=== PATIENT | female | born 1990 | race Hispanic/Latino ===

== ENCOUNTER 2019-04-16 10:48 | Inpatient (IN) | payer OTHER ==
[~2019-04-16] VITALS: Ht 167.6 cm; Wt 149.7 kg
[~2019-04-16 10:48] MED LIST: GUAIFENESIN-CO118 ML PO; IBUPROFEN800 MG PO; PRENA1 PLUS CO1 EACH PO; PRENATAL MULTI1 EAC3 PO; TUMS ULTRA400 MG PO
--- NOTE | 2019-04-24 00:13 | NUR ---
PT ASLEEP, AWAKEN FOR RT VS TO BE DONE, TEMP 99.1, ENCOURAGED USE OF I/S, GOOD EFFORT DEMONSTRATED, SCDS REPLACED ON PT, PT WITHOUT COMPLAINTS. ASLEEP ON COUCH.
[2019-04-24] MEDS ORDERED: CLARITIN10 M2 PO (06:25)
[2019-04-24] MEDS ORDERED: IRON 100 PLUS1 EACH (06:26)
--- NOTE | 2019-04-24 08:40 | NUR ---
MET BRIEFLY BEFORE DR CARLISLE CAME IN TO CARE FOR PT. CONNECTED WITH HER FAMILY AND GAVE THEM GUIDANCE WITH PAGER AND KAROL DIRECTIONS. EXTENDED A BLESSING, FOLLOW NEEDED
--- NOTE | 2019-04-24 09:45 | NUR ---
04/24/19 0945 Anh Sutton 0945- PT ARRIVES TO PACU AROUSABLE TO VOICE. PT DOES NOT FOLLOW COMMANDS AT THIS TIME. RESP EVEN AND UNLABORED. OXYGEN SAT HIGH 90'S TO 100% ON 6L VIA MASK. 0931- OXYGEN TURNED OFF. OXYGEN SAT MID TO HIGH 90'S ON RA. RESP EVEN AND UNLABORED. 0940- DR. CARLISLE AT THE BEDSIDE TO TALK WITH THE PT.
--- NOTE | 2019-04-24 10:55 | NUR ---
1010-PT ARRIVED FROM RECOVERY ROOM, TRANSFERRED TO BED BY SELF, TIERRA ACTIVITY WELL, PT DENIES PAIN, JUST REPORTS FEELING PRESSURE AT INCISION SITE, BECK DRAINING CLEAR YELLOW URINE, IV PATENT, NO EVIDENCE OF INFECTION, LR @ 125ML/HR
--- NOTE | 2019-04-24 11:03 | NUR ---
1045-DR CARLISLE AT BEDSIDE, DOPPLER FHT 120, PT REASSURED, ABD DRSG INTACT, SM AMT DRAINAGE NOTED ON RIGHT SIDE OF DRSG, DENIES PAIN
--- NOTE | 2019-04-24 12:20 | NUR ---
1219-PT DENIES PAIN, VSS, SM AMT DRAINAGE NOTED ON ABD DRSG RIGHT SIDE
--- NOTE | 2019-04-24 13:12 | NUR ---
1310-PT RESTING QUIETLY, DENIES PAIN, AT BEDSIDE
--- NOTE | 2019-04-24 15:42 | NUR ---
FAMILY AT BEDSIDE, DENIES PAIN, OCC NAUSEA NOTED, TRIED TAKING FEW BITES OF JELLO, DENIES NEED FOR NAUSEA MEDS AT THIS TIME
--- NOTE | 2019-04-24 16:13 | NUR ---
1602-MEDICATED PT WITH ZOFRAN 4MG IV FOR C/O NAUSEA, FAMILY AT BEDSIDE
--- NOTE | 2019-04-24 16:54 | NUR ---
PT WITH EMESIS 500ML, RED IN COLOR, PT HAD TAKEN FEW BITES OF RED JELLO AND WATER, PT FEELING BETTER AFTER EMESIS, DENIES NEED FOR ADDITIONAL NAUSEA MEDS
--- NOTE | 2019-04-24 18:50 | NUR ---
1845-PT FEELING BETTER, OCC BOWEL SOUNDS AUSCULTATED, IV PATENT, NO SIGNS OF INFECTION OR INFILTRATION, NO VAGINAL BLEEDING NOTED, DRAINAGE ON ABD DRSG MARKED FOR FURTHER EVALUATION
--- NOTE | 2019-04-24 20:25 | NUR ---
PT AWAKE AND ALERT, VISITING WITH AND WATCHING TV, DENIES PAIN, VS DONE, DENIES N/V, FEW CRACKERS AND FRESH WATER GIVEN PRIOR TO ROUTINE MEDICATION, DISCUSSED PLAN OF CARE, PT IN AGREEMENT, IV PATENT WITH LR AT 125 ML/HR, SITE INTACT, SCDS IN PLACE, USING I/S WITH GOOD EFFORT, NOTED SERO SANG DRAINAGE ON ABDOMINAL DRESSING BORDER ENLARGED FROM EARILIER MARKING BY APPROXIMATELY 1 INCH ALL SIDES. BECK DRAINING AIMEE URINE. HEART TONES PER DOPPLER 130'S.
--- NOTE | 2019-04-24 22:30 | NUR ---
PT DANGLED AND STOOD AT BEDSIDE WITH AND RN ASSIST, TOLERATED WELL, LIGHT SPONGE BATH GIVEN AND ORAL CARE COMPLETED, LINEN CHANGED AND FRESH GOWN PLACED ON PT, PT BACK TO BED, SCDS OFF TO ALLOW LEGS TO DRY. PT DENIES NEED FOR PAIN MED, IV PATENT. BECK EMPTIED FOR 200ML AIMEE URINE.
--- NOTE | 2019-04-25 00:13 | NUR ---
PT AWAKEN FOR RT VS, TEMP 99.1, ENCOURAGED USE OF I/S, GOOD EFFORT DEMONSTRATED, PT WITHOUT COMPLAINTS OR REQUEST, SCDS REPLACED AND ON, IV PATENT, ASLEEP ON COUCH.
--- NOTE | 2019-04-25 02:05 | NUR ---
PT AWAKEN FOR RT MEDICATION, DENIES NEED FOR ADDITIONAL PAIN MED, NO N/V, NEW BAG OF LR HUNG, CONTINUES AT 125ML/HR, SITE INTACT, REPOSITIONED SELF, WITHOUT DISTRESS.
--- NOTE | 2019-04-25 03:10 | NUR ---
PT ASLEEP, RESP EVEN REG, O2 SATS 97-98%
--- NOTE | 2019-04-25 04:05 | NUR ---
PT CONTINUES TO SLEEP, RESP EVEN AND REG, O2 SATS 97%
--- NOTE | 2019-04-25 06:11 | NUR ---
PT AWAKEN, VS STABLE, AFEBRILE, NO FURTHER EXTENSION OF BLEEDING NOTED ON ABDOMINAL DRESSING, PT REQUESTED ONE PAIN PILL TO KEEP ON TOP OF DISCOMFORT, MEDICATED WITH 1 OXYCODONE PO, I/O DONE, U/O 185ML LAST 8 HOURS (APPROX 22ML/HR), APPLE JUICE GIVEN. PLAN TO CALL DR VUONG.
--- NOTE | 2019-04-25 06:20 | NUR ---
TC TO DR VUONG TO REPORT LOW U/O, ORDERS RECEIVED TO GIVEN 500ML NS BOLUS.
--- NOTE | 2019-04-25 06:30 | NUR ---
500ML NS BOLUS STARTED TO INFUSE OVER 1 HOURS, PT UPDATED ON PLAN AND AGREES, IV SITE INTACT. LAB IN FOR AM BLOOD DRAW. PT WITHOUT REQUEST.
--- NOTE | 2019-04-25 07:34 | NUR ---
pt sleeping in no apparent distress
--- NOTE | 2019-04-25 08:30 | NUR ---
attempted to auscultate FHT. Unable to auscultate.
--- NOTE | 2019-04-25 09:25 | NUR ---
Shift assessment complete. VSS. Plan of care reviewed and pt agreeable. Pt encouraged to order brkfast. Dangled and walked around room with no dizziness. Sam well. SCD's remain in place. Pt encouraged to continue use of inspirometer. Carrillo emptied for QS. LR continues at 125/hr. Scheduled meds given. Warm washcloth provided.
--- NOTE | 2019-04-25 09:48 | NUR ---
MD Yamil in to evaluate pt.
--- NOTE | 2019-04-25 12:12 | NUR ---
PT RESTING AND STATES THAT SHE IS NOT HAVING ANY PAIN. VSS. PT ENCOURAED TO ORDER LUNCH. BECK EMPTIED AND ICE WATER REFILLED.
--- NOTE | 2019-04-25 12:22 | NUR ---
MD Yamil called and notified that pt barely meeting UO criteria. states that she believes it is related to indocin use. Push oral fluids and ok to betty alex.
--- NOTE | 2019-04-25 14:22 | NUR ---
Lunch tray removed. Scheduled meds given. isai mccoy. pt educated on importance of getting up to void soon. Pt verbalizes understanding and will call when ready to attempt void.
--- NOTE | 2019-04-25 16:06 | NUR ---
pt up to BR for first time for successful void
--- NOTE | 2019-04-25 16:18 | NUR ---
pt up walking in arthur
--- NOTE | 2019-04-25 18:20 | NUR ---
pt up to BR and then finishing dinner
--- NOTE | 2019-04-25 20:05 | NUR ---
PT ASLEEP, RESP EVEN AND REG, ON COUCH.
--- NOTE | 2019-04-25 21:02 | NUR ---
PT AWAKE, ALERT AND CHEERFUL, VS STABLE, ASSESSMENT DONE, INCISON WITH INTACT LESLEE, SCANT OLD DRIED SANG DRAINAGE NOTED, SL INTACT LEFT HAND, PT UP TO BR TO VOID, YELLOW CLEAR URINE, AT SIDE AND HELPFUL, RT MEDS GIVEN, PLAN OF CARE DISCUSSED, PT UP TO SHOWER, GAIT STEADY, ASSIST, ADVISED TO CALL RN WITH ASSIST, LINEN CHANGED.
--- NOTE | 2019-04-25 23:30 | NUR ---
PT ASLEEP, RESP EVEN REG, WITHOUT DISTRESS
--- NOTE | 2019-04-26 01:30 | NUR ---
PT REMAINS ASLEEP, RESP EVEN AND REG
--- NOTE | 2019-04-26 02:36 | NUR ---
PT ASLEEP, AWAKEN FOR VS AND RT MEDS, PT ALERT, DENIES PAIN AND WITHOUT REQUEST, RESTING
--- NOTE | 2019-04-26 03:01 | NUR ---
PT UP TO BR TO VOID 600ML YELLOW URINE, SCDS REPLACED, FHT PER DOPPLER IN RIGHT LOWER QUAD 140'S, PT WITHOUT REQUEST, RESTING.
--- NOTE | 2019-04-26 04:00 | NUR ---
PT ASLEEP, RESP EVEN REG WITHOUT DISTRESS
--- NOTE | 2019-04-26 06:00 | NUR ---
PT ASLEEP, RESP EVEN REG WITHOUT DISTRESS
--- NOTE | 2019-04-26 08:00 | NUR ---
Shift assessment complete. VSS. Plan of care reviewed and pt agreeable. SL dc'd. Cath intact. No s/s of infection. Pressure applied. Scheduled meds provided. Kayce held as pt states that she experienced a loose BM at 0700 this am. Pt states that she is voiding without any difficulty. IS use encouraged and pt continues to wear SCD's while in bed. FHT's auscultated in LLQ for 140's. Pt given menu and phone to order brkfast. Pt denies any pain/ discomfort at this time. asleep on couch in room. Ice water refilled and urine hat emptied. Continued dependent edema noted in upper and lower extremities without pitting.
[2019-04-26] MEDS ORDERED: TYLENOL EXTRA500 MG PO ×2 (09:58→10:01)
[2019-04-26] MEDS ORDERED: OXYCODONE HCL5 M1 PO (09:59)
[2019-04-26] MEDS ORDERED: OXYCODONE HCL5 MG PO (10:02)
--- NOTE | 2019-04-26 10:22 | NUR ---
DC instructions given and reviewed with pt and . Both verbalized understanding.
--- NOTE | 2019-04-26 11:02 | NUR ---
stable pt dc'd via wheelchair accompanied by
--- NOTE | 2019-04-27 17:28 | OR ---
[facility] [address], [place] [address] Signed DATE OF OPERATION: 04/24/2019 SURGEON: Sarina Lobo MD POLISHER APPRENTICE: Jose Patel MD PREOPERATIVE DIAGNOSIS: Intrauterine at 18+ weeks, large right ovarian mass. POSTOPERATIVE DIAGNOSIS: Intrauterine at 18+ weeks, large right ovarian mass with extensive pelvic adhesions. PROCEDURE PERFORMED: Laparotomy with right salpingo-oophorectomy, lysis of adhesions. ANESTHESIA: Spinal with general. ESTIMATED BLOOD LOSS: 150 mL. DRAINS: Carrillo catheter. INDICATIONS AND FINDINGS: The patient is a 29-year-old female, 4, para 2, SAB 1, who is now 18 weeks 4 days , who has had a large right ovarian mass since early , which has failed to resolve. It was measuring 15 cm. There also appeared to be another cyst on the right ovary measuring 8 cm. The left ovary had some smaller cysts. At the time of surgery, there was a large right ovarian mass, but it was pulled behind the uterus onto the left side. It was rotating the uterus. It was also densely adherent down into the cul-de-sac. DESCRIPTION OF PROCEDURE: The patient was prepped and draped in the supine position. A midline incision was made above the umbilicus around the umbilicus and slightly below. The incision was carried down through the fascia. The fascial incision was extended superiorly and inferiorly. The peritoneum was opened bluntly and the incision extended superiorly and inferiorly. Electronically Signed By: SARINA LOBO MD 04/27/19 1728 PATIENT NAME: CHAGO IBARRA OPERATIVE REPORT DATE OF : [birth year] REPORT #: [id number] PHYSICIAN: SARINA LOBO MD PCP: UNASSIGNED DOCTOR REPORT IS CONFIDENTIAL AND NOT TO BE RELEASED WITHOUT AUTHORIZATION [facility] [address], [place] [address] Signed At this point, an attempt was made to find an ovarian mass and initially, it was quite difficult because of its location behind the uterus and on to the patient's left. Eventually, the ovary could be brought somewhat into view. The Sai retractor was then placed. Given the very size of the mass and the extensive adhesions, it was felt that the cyst needed to be drained to allow for further dissection. Following this, a small incision was made over the surface of the ovary and the ovary was drained of a large amount of dark brown old blood. This was then closed with Allis clamps. Following this, the ovary was dissected free with quite a bit of difficulty down behind the uterus. The right tube was eventually identified and with the extensive posterior dissection, the pedicle could be clamped across with a series of curved Z clamps. Following this, the specimen could be removed. It was felt that there may be some residual ovary on the posterior aspect of the uterus, but because of the , further manipulation was not felt to be in the 's best interest. The pedicles were free tied as well as suture ligated with 0 Vicryl. The abdomen was then copiously irrigated and inspected and the pelvis appeared to be dry. The retractor was then removed. The peritoneum identified. The peritoneum was closed with a running suture of 3-0 Vicryl. The fascia was closed with a running suture of 0 PDS. This was started at each end and ended in the center. The subcutaneous tissue was irrigated and bleeding points controlled with cautery. Multiple layers of 3-0 Vicryl were used to reapproximate the subcu space given her morbid obesity. The skin was closed with alicja. All sponge and needle counts were correct. The procedure was quite a bit more difficult than usual because of the , her morbid obesity, and the extensive adhesions. Sarina Lobo MD PJW/MODL /[id number] cc: Jose Patel MD Copies: JOSE PATEL MD ~ Electronically Signed By: SARINA LOBO MD 04/27/19 1728 PATIENT NAME: CHAGO IBARRA OPERATIVE REPORT DATE OF : [birth year] REPORT #: [id number] PHYSICIAN: SARINA LOBO MD PCP: UNASSIGNED DOCTOR REPORT IS CONFIDENTIAL AND NOT TO BE RELEASED WITHOUT AUTHORIZATION
== END 2019-04-26 11:00 | disposition home or self-care (01) | DRG 769 ==
LOC: DSVR 04-24 06:00 → MS 04-24 06:45 → FBC 04-24 10:05
PROVIDERS: ADMIT Obstetrics & Gynecology
PROC: 0UT00ZZ Resection of Right Ovary, Open Approach (ICD-10-PCS; 2019-04-24)
PROC: 0DNW0ZZ Release Peritoneum, Open Approach (ICD-10-PCS; 2019-04-24)
PROC: 0UT50ZZ Resection of Right Fallopian Tube, Open Approach (ICD-10-PCS; principal; 2019-04-24 06:45)
DX: O99.89 Other specified diseases and conditions complicating pregnancy, childbirth and the puerperium (principal); N83.8 Other noninflammatory disorders of ovary, fallopian tube and broad ligament; N73.6 Female pelvic peritoneal adhesions (postinfective); O99.212 Obesity complicating pregnancy, second trimester; E66.01 Morbid (severe) obesity due to excess calories; Z3A.18 18 weeks gestation of pregnancy; Z87.440 Personal history of urinary (tract) infections
CPT/HCPCS: 00840; 36415; 85025; J0131; J0330; J1100; J1200; J1644; J2274; J2405; J2704; J2765; J3010; J7040; J7120

== ENCOUNTER 2019-08-25 10:38 | Inpatient (IN) | payer OTHER ==
[~2019-08-25] VITALS: Ht 167.6 cm; Wt 162.0 kg
[~2019-08-25 10:38] MED LIST changes: +CLARITIN10 M2 PO; +IRON 100 PLUS1 EACH; +OXYCODONE HCL5 M1 PO; +OXYCODONE HCL5 MG PO; +TYLENOL EXTRA500 MG PO
--- NOTE | 2019-08-27 08:36 | PR ---
[facility] [address] [place], [place] [address] Signed Progress Notes IP Datetime Report Generated by HELEN: 08/27/2019 08:36 PROGRESS NOTES: [id number] Impression: Reassuring heart rate; Gest. HTN/PreEclampsia/Eclampsia; Slow Progression of Labor Procedures: Artificial ROM; Scalp Electrode; Sterile Vag Exam Plan: Continue present management Informed Consent Obtain: Vaginal Delivery; Induction of Labor; Risks, Benefits and Alternatives Discussed VITAL SIGNS: [id number] Vital Signs: Reviewed VS Notable Details: intermittent severe HTN EXAM: [id number] Dilatation: 2.0 Effacement: 50 Station: -2 Uterine Contractions: q 2 to 3 min, mild MEMBRANES: [id number] Membrane Status: Intact ROM Note: AROM attempted with hook and FSE xs 2 and no fluid seen Comments: On pit after she received 6 Cytotec with minimal change in her cervix. She is still comfortable overall. She denies any headache or visual symptoms. She is just tired as she did not sleep well given her multiple interventions. She has received several doses of labetalol overnight and this has worked well to bring her BPs down to a reasonable zone. Will continue for now but will start mag when in active labor. Fetus A: [id number] FHR Baseline: 130 Variability: Moderate 6-25bpm Accelerations: 15X15 Decelerations: None FHR Category: Category I Presentation: Vertex Comments on Fetus A: No evidence of metabolic acidosis Fetus B: [id number] Signing Physician: Sarina Lobo MD Copies: *Electronically Signed* 08/27/19835 SARINA LOBO MD PATIENT NAME: CHAGO IBARRA PROGRESS NOTE DATE OF : [birth year] PHYSICIAN: SARINA LOBO MD RPT #: [id number] REPORT IS CONFIDENTIAL AND NOT TO BE RELEASED WITHOUT AUTHORIZATION [address] [place], [place] [address] Signed ~ *Electronically Signed* 08/27/19835 SARINA LOBO MD PATIENT NAME: CHAGO IBARRA PROGRESS NOTE DATE OF : [birth year] PHYSICIAN: SARINA LOBO MD RPT #: [id number] REPORT IS CONFIDENTIAL AND NOT TO BE RELEASED WITHOUT AUTHORIZATION
--- NOTE | 2019-08-27 08:57 | PR ---
[facility] [address] [place], [place] [address] Signed Progress Notes IP Datetime Report Generated by CPN: 08/27/2019 08:57 PROGRESS NOTES: [id number] Impression: Gest. HTN/PreEclampsia/Eclampsia Procedures: Artificial ROM; Scalp Electrode; Sterile Vag Exam Other Procedures: mag sulfate to start Plan: Continue present management Informed Consent Obtain: Vaginal Delivery; Induction of Labor; Risks, Benefits and Alternatives Discussed VITAL SIGNS: [id number] Vital Signs: Reviewed VS Notable Details: severe HTN EXAM: [id number] Dilatation: 2.0 Effacement: 50 Station: -2 Uterine Contractions: q 2 to 3 min MEMBRANES: [id number] Membrane Status: Intact ROM Note: clear fluid seen approx 10 min after prior attempts of rupture Comments: Becoming uncomfortable. Will start mag sulfate. Epidural as needed. Fetus A: [id number] FHR Baseline: 140 Variability: Moderate 6-25bpm Accelerations: 15X15 Decelerations: None FHR Category: Category I Presentation: Vertex Comments on Fetus A: No evidence of metabolic acidosis Fetus B: [id number] Signing Physician: Sarina Lobo MD Copies: ~ *Electronically Signed* 08/27/19 0857 SARINA LOBO MD PATIENT NAME: CHAGO IBARRA PROGRESS NOTE DATE OF : [birth year] PHYSICIAN: SARINA LOBO MD RPT #: [id number] REPORT IS CONFIDENTIAL AND NOT TO BE RELEASED WITHOUT AUTHORIZATION
--- NOTE | 2019-08-27 12:10 | PR ---
[facility] [address] [place], [place] [address] Signed Progress Notes IP Datetime Report Generated by CPN: 08/27/2019 12:10 PROGRESS NOTES: [id number] Impression: Slow Progression of Labor Procedures: Intrauterine Pressure Catheter; Sterile Vag Exam Other Procedures: mag sulfate to start Plan: Continue present management Informed Consent Obtain: Vaginal Delivery; Induction of Labor; Risks, Benefits and Alternatives Discussed VITAL SIGNS: [id number] Vital Signs: Reviewed VS Notable Details: BPs improved after epidural, mag sulfate EXAM: [id number] Dilatation: 2.5 Effacement: 70 Station: -2 Uterine Contractions: q 2 to 3 min MEMBRANES: [id number] Membrane Status: Intact ROM Note: clear fluid seen approx 10 min after prior attempts of rupture Comments: Comfortable after epidural. Very poor progress otherwise. I suspect her contractions are inadequate. Will place IUPC and increase pit as needed. Fetus A: [id number] FHR Baseline: 130 Variability: Moderate 6-25bpm Accelerations: 15X15 Decelerations: None FHR Category: Category I Presentation: Vertex Comments on Fetus A: No evidence of metabolic acidosis Fetus B: [id number] Signing Physician: Sarina Lobo MD Copies: ~ *Electronically Signed* 08/27/19 1210 SARINA LOBO MD PATIENT NAME: CHAGO IBARRA PROGRESS NOTE DATE OF : [birth year] PHYSICIAN: SARINA LOBO MD RPT #: [id number] REPORT IS CONFIDENTIAL AND NOT TO BE RELEASED WITHOUT AUTHORIZATION
--- NOTE | 2019-08-28 09:19 | PR ---
[facility] [address] [facility] [place], [place] [address] Signed PP Progress Notes Datetime Report Generated by CPN: 08/28/2019 09:19 SUBJECTIVE: [id number] Pain: Within normal limits Pain Comments: Denies headache or visual changes Nausea/Vomiting: Denies Vital Signs: [id number] Vital Signs: Reviewed; Within Normal Limits EXAM: [id number] Cardiovascular: Normal Respiratory: Normal Abdomen/Uterus: Abnormal Lochia: Normal Vulva/Perineum: Not Done Breasts: Not Done CVA Tenderness: Not Done Extremities: Abnormal Incision: Not Applicable Progress: Abnormal Exam Comments: Facial edema Fundus firm, NT @ U 1+ edema of LE 12.2/37, WBC 9.2, plat 218k IMPRESSION/PLAN/PROCEDURES: [id number] Impression: Normal progression; difficulties; Induced Hypertension Plan: consult Other Plans: D/C mag, D/C alex, ambulate Progress Notes: BPs much improved since delivery. I feel mag sulfate can be stopped and will begin ambulation. She is not breast feeding well and will ask for consult and begin pumping. Signing Physician: Sarina Lobo MD Copies: ~ *Electronically Signed* 08/28/19 0919 SARINA LOBO MD PATIENT NAME: CHAGO IBARRA PROGRESS NOTE DATE OF : [birth year] PHYSICIAN: SARINA LOBO MD RPT #: [id number] REPORT IS CONFIDENTIAL AND NOT TO BE RELEASED WITHOUT AUTHORIZATION
--- NOTE | 2019-08-29 09:38 | PR ---
[facility] [address] [facility] [place], [place] [address] Signed PP Progress Notes Datetime Report Generated by CPN: 08/29/2019 09:38 SUBJECTIVE: [id number] Pain: Within normal limits Pain Comments: Denies headache or visual changes Nausea/Vomiting: Denies Vital Signs: [id number] Vital Signs: Reviewed Notable Details: mild HTN EXAM: [id number] Cardiovascular: Not Done Respiratory: Not Done Abdomen/Uterus: Abnormal Lochia: Normal Vulva/Perineum: Not Done Breasts: Not Done CVA Tenderness: Not Done Extremities: Normal Incision: Not Applicable Progress: Abnormal Exam Comments: Facial edema Fundus firm, NT @ U 1+ edema of LE 12.2/37, WBC 9.2, plat 218k IMPRESSION/PLAN/PROCEDURES: [id number] Impression: Normal progression Plan: Discharge Other Plans: D/C mag, D/C alex, ambulate Procedures: None Progress Notes: Doing well except for breast feeding. Her BP is stable and I feel she can be discharged. Signing Physician: Sarina Lobo MD Copies: ~ *Electronically Signed* 08/29/19 0938 SARINA LOBO MD PATIENT NAME: CHAGO IBARRA PROGRESS NOTE DATE OF : [birth year] PHYSICIAN: SARINA LOBO MD RPT #: [id number] REPORT IS CONFIDENTIAL AND NOT TO BE RELEASED WITHOUT AUTHORIZATION
== END 2019-08-29 15:20 | disposition home or self-care (01) | DRG 807 ==
LOC: FBCO 10:38 → FBC 13:12
PROVIDERS: ADMIT Obstetrics & Gynecology
PROC: 3E0P7VZ Introduction of Hormone into Female Reproductive, Via Natural or Artificial Opening (ICD-10-PCS; 2019-08-26)
PROC: 10E0XZZ Delivery of Products of Conception, External Approach (ICD-10-PCS; principal; 2019-08-27)
PROC: 0KQM0ZZ Repair Perineum Muscle, Open Approach (ICD-10-PCS; 2019-08-27)
PROC: 10907ZC Drainage of Amniotic Fluid, Therapeutic from Products of Conception, Via Natural or Artificial Opening (ICD-10-PCS; 2019-08-27)
PROC: 10H07YZ Insertion of Other Device into Products of Conception, Via Natural or Artificial Opening (ICD-10-PCS; 2019-08-27)
PROC: 00HU33Z Insertion of Infusion Device into Spinal Canal, Percutaneous Approach (ICD-10-PCS; 2019-08-27)
PROC: 3E0R3BZ Introduction of Anesthetic Agent into Spinal Canal, Percutaneous Approach (ICD-10-PCS; 2019-08-27)
DX: O14.14 Severe pre-eclampsia complicating childbirth (principal); Z37.0 Single live birth; Z3A.36 36 weeks gestation of pregnancy; O60.13X0 Preterm labor second trimester with preterm delivery third trimester, not applicable or unspecified; O99.824 Streptococcus B carrier state complicating childbirth; O75.89 Other specified complications of labor and delivery; O70.1 Second degree perineal laceration during delivery; O99.214 Obesity complicating childbirth; E66.01 Morbid (severe) obesity due to excess calories
CPT/HCPCS: 01960; 36415; 59025; 82565; 82570; 83735; 84156; 84450; 84520; 84550; 85025; 85027; 99212; G0378; J1650; J2540; J2590; J2795; J3010; J3475; J7060; J7120

== ENCOUNTER 2021-07-27 01:25 | Emergency (ER) | payer SELFPAY ==
[~2021-07-27] VITALS: Ht 167.6 cm; Wt 133.8 kg
== END 2021-07-27 02:49 | disposition home or self-care (01) ==
LOC: ED 01:25
DX: U07.1 COVID-19 (principal)
CPT/HCPCS: 71045; 99284-25

== ENCOUNTER 2024-04-02 17:03 | Inpatient (IN) | payer BC, OTHER ==
[2024-04-03] MEDS ORDERED: LACTATED RINGER'S 1,000 ML IV SCH
[2024-04-03] MEDS ORDERED: miSOPROStoL 25 MCG TAB PV SCH
[2024-04-03] MEDS ORDERED: LACTATED RINGER'S 1,000 ML IV PRN (00:15)
[2024-04-03] MEDS ORDERED: OXYTOCIN/DEXTROSE 5% 20 UNITS/100 ML BAG IV SCH ×2 (00:15→04:30)
[2024-04-03 01:06] LABS: HEMATOCRIT 35.9 % (35.0-50.0); HEMOGLOBIN 11.8 g/dL (12.0-18.0); MCH 28.5 (27-36); MCV 86.5 fl (81-99); RBC 4.15 M/ul (4.3-5.7); RDW 18.1 (10.5-15.0)
[2024-04-03 01:28] LABS: AMPHETAMINES, URINE NEGATIVE (NEGATIVE); BARBITURATES, URINE NEGATIVE (NEGATIVE); BENZODIAZEPINE, URINE NEGATIVE (NEGATIVE); BUPRENORPHINE, URINE NEGATIVE (NEGATIVE); CANNABINOID, URINE NEGATIVE (NEGATIVE); COCAINE, URINE NEGATIVE (NEGATIVE); ECSTASY, URINE POSITIVE (NEGATIVE); FENTANYL, URINE NEGATIVE (NEGATIVE); METHADONE, URINE NEGATIVE (NEGATIVE); OPIATES, URINE NEGATIVE (NEGATIVE); OXYCODONE, URINE NEGATIVE (NEGATIVE); PHENCYCLIDINE, URINE NEGATIVE (NEGATIVE)
[2024-04-03 01:43] LABS: ABO O
[2024-04-03 01:44] LABS: ANTIBODY SCREEN NEGATIVE; RH POSITIVE
[2024-04-03] MEDS ORDERED: ROPIVACAINE 0.2% 200 ML BAG ONE (13:11)
[2024-04-03] MEDS ORDERED: dexmedeTOMIDine HCl 200 MCG/2 ML VIAL ONE (13:11)
[2024-04-03] MEDS ORDERED: BUPIVACAINE HCL 0.25% 10 ML SDV INJ ONE (13:11)
[2024-04-03] MEDS ORDERED: LIDOCAINE HCL 2% 5 ML SDV ONE (13:11)
[2024-04-03] MEDS ORDERED: ROPIVACAINE 0.2% 200 ML BAG EPIDURAL SCH ×2 (14:00)
[2024-04-03] MEDS ORDERED: LACTATED RINGER'S 2,000 ML IV ONE (14:00)
[2024-04-03] MEDS ORDERED: LACTATED RINGER'S 500 ML IV PRN (14:00)
[2024-04-03] MEDS ORDERED: ePHEDrine sulfate 5 MG/ML SYRINGE IV PRN (14:00)
[2024-04-03] MEDS ORDERED: IBUPROFEN 600 MG TAB PO PRN (18:15)
[2024-04-03] MEDS ORDERED: ACETAMINOPHEN 325 MG TAB PO PRN (18:15)
[2024-04-03] MEDS ORDERED: CALCIUM CARBONATE 500 MG CHEW PO PRN ×2 (18:15)
[2024-04-03] MEDS ORDERED: LIDOCAINE 2% VISCOUS 6 ML SYR TOP ONE ×2 (18:15)
[2024-04-03] MEDS ORDERED: BENZOCAINE 60 ML AEROSOL TOP PRN (18:15)
[2024-04-03] MEDS ORDERED: MAGNESIUM HYDROXIDE/AL HYDROX 30 ML CUP PO PRN ×2 (18:15)
[2024-04-03] MEDS ORDERED: HYDROCORTISONE ACETATE 25 MG SUPP PR PRN (18:15)
[2024-04-03] MEDS ORDERED: HYDROCODONE/ACETA 5/325 TAB PO PRN (18:15)
[2024-04-03] MEDS ORDERED: MAGNESIUM HYDROXIDE 30 ML UDC PO PRN (18:15)
[2024-04-03] MEDS ORDERED: OXYTOCIN/0.9 % SODIUM CHLORIDE 500 ML IV SCH (18:15)
[2024-04-03] MEDS ORDERED: WITCH HAZEL/GLYCERIN 1 EA PAD TOP PRN (18:15)
[2024-04-03] MEDS ORDERED: SENNOSIDES/DOCUSATE 1 EA TAB PO SCH (21:00)
[2024-04-03] MEDS ORDERED: LABETALOL HCL 200 MG TAB PO SCH (21:00)
[2024-04-04 05:32] LABS: HEMATOCRIT 34.4 % (35.0-50.0); HEMOGLOBIN 11.4 g/dL (12.0-18.0); MCH 28.9 (27-36); MCHC 33.1 g/dl (30-36); MCV 87.2 fl (81-99); RBC 3.95 M/ul (4.3-5.7); RDW 18.6 (10.5-15.0)
[2024-04-04] MEDS ORDERED: ENOXAPARIN SODIUM 40 MG/0.4 ML SYR SUB-Q SCH (09:00)
[2024-04-04] MEDS ORDERED: CITALOPRAM HYDROBROMIDE 20 MG TAB PO SCH (09:00)
[2024-04-05 08:37] VITALS: BP 135/71
== END 2024-04-05 10:20 | disposition home or self-care (01) | DRG 806 ==
LOC: FBC 17:03
PROVIDERS: ADMIT Obstetrics & Gynecology; ATTEND Obstetrics & Gynecology
PROC: 10E0XZZ Delivery of Products of Conception, External Approach (ICD-10-PCS; principal; 2024-04-03)
PROC: 3E0R3BZ Introduction of Anesthetic Agent into Spinal Canal, Percutaneous Approach (ICD-10-PCS; 2024-04-03)
PROC: 00HU33Z Insertion of Infusion Device into Spinal Canal, Percutaneous Approach (ICD-10-PCS; 2024-04-03)
DX: O24.424 Gestational diabetes mellitus in childbirth, insulin controlled (principal); O10.92 Unspecified pre-existing hypertension complicating childbirth; Z37.0 Single live birth; Z3A.38 38 weeks gestation of pregnancy; O69.2XX0 Labor and delivery complicated by other cord entanglement, with compression, not applicable or unspecified
CPT/HCPCS: 01960; 36415; 80307; 85027; 86850; 86900; 86901; A9270; J1650; J2001; J2590; J2795; J7121

== ENCOUNTER 2024-09-15 06:04 | Day surgery (SDC) | payer BC, OTHER ==
[2024-09-01 09:09] VITALS: BP 174/97
[~2024-09-15] VITALS: Ht 170.2 cm; Wt 150.0 kg
[~2024-09-15 06:04] MED LIST changes: +ASPIRIN81 MG PO; +CITALOPRAM HBR20 MG PO; +IRON325 M1 PO; +LABETALOL HCL200 MG PO; +LACTATED RINGER'S 1,000 ML IV SCH; +NORETHINDRONE0.35 MG PO; +NOVOLIN N100 UNIT/1 SUB-Q; +VITAMIN C 500500 M1 PO
[2024-09-15 06:23] VITALS: BP 151/101
[2024-09-15] MEDS ORDERED: HYDROmorphone HCL 2 MG/ML VIAL ONE (06:53)
[2024-09-15] MEDS ORDERED: LIDOCAINE HCL 2% 5 ML SDV ONE ×2 (06:53→08:26)
[2024-09-15] MEDS ORDERED: ondansetron HCL 4 MG/2 ML VIAL ONE (06:53)
[2024-09-15] MEDS ORDERED: fentaNYL citrate 100 MCG/2 ML VIAL ONE (06:53)
[2024-09-15] MEDS ORDERED: KETAMINE in NS 50 MG/5 ML SYR ONE (06:53)
[2024-09-15] MEDS ORDERED: DEXAMETHASONE SOD PHOS 4 MG/ML VIAL ONE (06:53)
[2024-09-15] MEDS ORDERED: MAGNESIUM SULFATE 1 GM/2 ML VIAL ONE ×2 (06:53→08:26)
[2024-09-15] MEDS ORDERED: ROCURONIUM BROMIDE 50 MG/5 ML SYR ONE ×2 (06:53→07:39)
[2024-09-15] MEDS ORDERED: propofoL 200 MG/20 ML VIAL ONE (06:53)
[2024-09-15] MEDS ORDERED: dexmedeTOMIDine HCl 200 MCG/2 ML VIAL ONE (06:53)
[2024-09-15] MEDS ORDERED: ACETAMINOPHEN 1,000 MG/100 ML VIAL ONE (06:54)
[2024-09-15] MEDS ORDERED: SODIUM CHLORIDE 0.9% 40 ML IV ONE ×2 (06:54→08:25)
[2024-09-15] MEDS ORDERED: HEParin SOD (PORCINE) 5,000 UNIT/0.5 ML SYR SUB-Q SCH (07:00)
[2024-09-15] MEDS ORDERED: FAMOTIDINE 20 MG/ 2 ML VIAL IV SCH (07:00)
[2024-09-15] MEDS ORDERED: METOCLOPRAMIDE HCL 10 MG/2 ML SDV IV SCH (07:00)
[2024-09-15] MEDS ORDERED: LIDOCAINE HCL 1% 5 ML SDV INJ ONE ×2 (07:00)
[2024-09-15] MEDS ORDERED: IBLOOD GLUCOSE TEST STRIP 1 EA TEST VI PRN ×3 (07:00→08:00)
[2024-09-15] MEDS ORDERED: CEFAZOLIN SODIUM 3 GM/30 ML SYR IV SCH (07:00)
[2024-09-15] MEDS ORDERED: HEParin SOD (PORCINE) 5,000 UNIT/0.5 ML SYR ONE (07:07)
[2024-09-15] MEDS ORDERED: NALOXONE HCL 0.4 MG SYR IV PRN ×2 (08:00→10:00)
[2024-09-15] MEDS ORDERED: fentaNYL citrate 50 MCG/ML SDV IV PRN (08:00)
[2024-09-15] MEDS ORDERED: KETOROLAC TROMETHAMINE 30 MG/ML VIAL IV PRN (08:00)
[2024-09-15] MEDS ORDERED: ondansetron HCL 4 MG/2 ML VIAL IV PRN ×2 (08:00→10:00)
[2024-09-15] MEDS ORDERED: droPERidol 5 MG/2 ML VIAL IV PRN (08:00)
[2024-09-15] MEDS ORDERED: ePHEDrine sulfate 50 MG/ML AMP ONE (08:40)
[2024-09-15] MEDS ORDERED: FLUORESCEIN SODIUM 500 MG/5 ML ML ONE (09:10)
[2024-09-15] MEDS ORDERED: TRANEXAMIC ACID 1,000 MG/10 ML AMP ONE (09:12)
[2024-09-15] MEDS ORDERED: SUGAMMADEX SODIUM 200 MG/2 ML ML ONE (09:28)
[2024-09-15] MEDS ORDERED: ondansetron HCL 4 MG TAB PO PRN (10:00)
[2024-09-15] MEDS ORDERED: LACTATED RINGER'S 1,000 ML IV SCH (10:00)
[2024-09-15] MEDS ORDERED: MORPHINE SULFATE 10 MG/ML VIAL IV PRN (10:00)
[2024-09-15] MEDS ORDERED: MAGNESIUM HYDROXIDE/AL HYDROX 30 ML CUP PO PRN (10:00)
[2024-09-15] MEDS ORDERED: METOCLOPRAMIDE HCL 10 MG/2 ML SDV IV PRN (10:00)
[2024-09-15] MEDS ORDERED: PROCHLORPERAZINE EDISYLATE 10 MG/2 ML VIAL IV PRN (10:00)
[2024-09-15] MEDS ORDERED: FAMOTIDINE 20 MG TAB PO PRN (10:00)
[2024-09-15] MEDS ORDERED: ACETAMINOPHEN 500 MG TAB PO SCH (10:15)
[2024-09-15] MEDS ORDERED: LIDOCAINE 2% VISCOUS 6 ML SYR TOP ONE (10:15)
[2024-09-15] MEDS ORDERED: OXYCODONE HCL 5 MG TAB PO PRN (10:15)
[2024-09-15 10:57] VITALS: BP 151/99
--- NOTE | 2024-09-15 11:14 | NUR ---
09/15/24 1114 Aurelia Fox 1000- PT ARRIVES TO THE PACU WITH A NATURAL AIRWAY. HEAD OF PT REPOSITIONED MULTIPLE TIMES TO TRY AND MAINTAIN AIRWAY. CHIN LIFT NEEDED OFF AND ON. PT HAS MASK WITH 6L OF O2. LR INFUSING IN L HAND. ABDOMEN IS SOFT AND NONDISTENDED. ALL 3 LAP SITES ARE CLEAN DRY AND INTACT. BECK IN PLACE AND DRAINING. ALL MONITORS PUT IN PLACE AND VSS. 1008- HOB INCREASED AND PT REPOSITOINED TO MAINTAIN AIRWAY WITH CHIN LIFT NEEDED OFF AND ON. 1016-PT OPENS EYES. PT SHAKES HEAD NO WHEN ASKED ABOUT PAIN AND NAUSEA. PT EASILY FALLS BACK TO SLEEP. 1023- PT IS EASILY REACTIVE TO VERBAL STIMULI AND WAKES EASILY. 1028- TORADOL GIVEN PER HIMA LOWRY PT CONTINUES TO DENY PAIN AND NAUSEA. 1035- PT SALINE LOCKED AT THIS TIME. 1045- VSS. MONITORS REMOVED. 1050- URINARY CATHETER REMOVED WITH NO ISSUES. 100ML OF BRIGHT YELLOW URINE NOTED. 1055- PT BROUGHT TO DS. PT PUT ON MONITORS AND VITAL SIGNS OBTAINED. BEDSIDE REPORT GIVEN TO ARIANA SPAIN. CARE FOR THIS PT HANDED OVER AT THIS TIME. ALL SITES ARE CLEAN DRY AND INTACT AND NO VAGINAL BLEEDING NOTED. PT CONTINUES TO DENY PAIN AND NAUSEA BUT FEELS "WOOZY". FAMILY AT BEDSIDE.
[2024-09-15 11:48] VITALS: BP 138/87
[2024-09-15 12:52] VITALS: BP 144/85
[2024-09-15] MEDS ORDERED: SEVOFLURANE 250 ML BTL INH ONE (13:39)
[2024-09-15] MEDS ORDERED: IBUPROFEN 800 MG TAB PO SCH (14:00)
[2024-09-15 14:02] VITALS: BP 132/72
--- NOTE | 2024-09-15 15:41 | NUR ---
CARMELLA 1055-PT BACK TO ROOM FROM PACU ON . RECEIVED REPORT FROM DARIO LANE AND MISAEL LANE. PT IS DROWSY. RESP EVEN AND UNLABORED. DENIES PAIN. STATES SHE FEELS "WOOZY". PROVIDED PT WITH WATER AND CRACKERS. FAMILY IN ROOM. NO OTHER NEEDS AT THIS TIME. CALL LIGTH WITHIN REACH.
--- NOTE | 2024-09-15 15:47 | NUR ---
CARMELLA 1448-PT LAYING IN BED. PT IS DROWSY. DENIES PAIN AND NAUSEA. STILL FEELING A LITTLE WOOZY. DRESSINGS ARE CLEAN, DRY, AND INTACT. REFILLED WATER. NO OHTER NEEDS AT THIS TIME. CALL LIGHT WITHIN REACH.
--- NOTE | 2024-09-15 16:02 | NUR ---
LE 1252-PT IS LAYING IN BED AWAKE. RESP EVEN AND UNLABORED. DENIES PAIN AND NAUSEA. STATES FEELING MUCH BETTER. NO OTHER NEEDS AT THIS TIME. FAMILY IN ROOM. CALL LIGHT WITHIN REACH.
--- NOTE | 2024-09-15 16:05 | NUR ---
CARMELLA 1402-PT IS LAYING IN BED. RESP EVEN AND UNLABORED. NO CONCERNS AT THIS TIME. DENIES PAIN AND NAUSEA. PT DRINKING WATER. FAMILY IN ROOM. NO OTHER NEEDS AT THIS TIME. CALL LIGHT WITHIN REACH.
--- NOTE | 2024-09-15 16:08 | NUR ---
CARMELLA 1430-PT SITTING AT BEDSIDE. DENIES DIZZINESS. PT AMBULATES TO RESTROOM WITH 1 RN ASSIST AND HER . PT VOIDS 500ML OF YELLOW URINE. CARMELLA 1434-PT AMBULATES TO BEDSIDE AND WILL START GETTING DRESSED WITH THE HELP OF HER .
--- NOTE | 2024-09-15 16:10 | NUR ---
LE 1445-WENT OVER DISCHARGE INSTRUCTIONS WITH PT, AND HER MOM. WENT OVER POSTOP MEDICATIONS. ALL QUESTIONS ANSWERED. LE 1450-PT AMBULATES TO WHEELCHAIR AND RIDE PROVIDED TO FRONT OF HOSPITAL WHERE WAS WAITING WITH THE CAR.
--- NOTE | 2024-09-17 15:34 | PATH ---
[facility] [address] [place], [place] [address] Signed SPECIMEN(S): A UTERUS, CERVIX AND LEFT OVARY SPECIMEN SOURCE: A. UTERUS, CERVIX AND LEFT OVARY v CLINICAL HISTORY: Left ovarian mass FINAL PATHOLOGIC DIAGNOSIS: Uterus with left fallopian tube and ovary, hysterectomy with left salpingo-oophorectomy: - Proliferative phase endometrium; no hyperplasia or neoplasia identified - Leiomyomas - Cervix with no significant pathologic changes - Fallopian tube with no significant pathologic changes - Ovary with hemorrhagic follicle cysts BRP MICROSCOPIC EXAMINATION: Histologic sections of all submitted blocks are examined by light microscopy. These findings, together with the gross examination, support the pathologic diagnosis. GROSS DESCRIPTION: The specimen, labeled and designated "Carmen Wagner, uterus, cervix, and left ovary," is received in formalin and consists of uterus with attached cervix and a detached fallopian tube and ovary. The uterus and cervix weighs 146 g and measures from cervix to fundus 10.2 cm, cornu to cornu 6.5 cm, and anterior to posterior 4.4 cm. The uterine serosa predominantly pink-portillo smooth with a few defects on the posterior aspect ranging size from 0.7 to 1.7 cm. The cervix measures 2.9 x 2.8 cm, ectocervix pink-portillo smooth with focal hemorrhage, and a slit like and patent os measuring 1.7 cm. The specimen is opened to reveal triangular-shaped endometrium measuring 4.7 x 3.7 cm and pink-portillo thickened endometrium ranging thickness from 0.3 to 0.6 cm. The myometrial thickness 2.1 cm in greatest dimension. The specimen is sectioned to reveal two intramural leiomyoma measuring 0.5 cm in greatest dimension. The fallopian tube measures 4.9 x 0.7 cm with attached fimbriated end multiple PATIENT NAME: CHAGO WAGNER PATHOLOGY DATE OF : [birth year] REPORT #: [id number] PHYSICIAN: GIANNA PATHOLOGY PCP: NO PRIMARY CARE PHYSICIAN REPORT IS CONFIDENTIAL AND NOT TO BE RELEASED WITHOUT AUTHORIZATION [facility] [address] [place], [place] [address] Signed peritubular cysts range size from less than 0.1 to 1.0 cm. The attached ovary previously disrupted measuring 7.0 x 5.7 x 4.4 cm and weighs 57 g. The ovary is disrupted in one area measuring 4.5 x 1.5 cm. The outer surface is pink-portillo focally hemorrhagic with a few adhesions. The outer surface is carefully inked blue and is sectioned to reveal multiple cystic cavities range size from 0.2 to 4.5 cm in greatest dimension. The intact cysts are filled with portillo to red-brown fluid and clotted material oh with a smooth inner lining. The largest cystic area predominantly smooth with areas of attached hemorrhagic material. Bricklayer Tender sections are submitted. Cassette Summary: (A1) corporate representative sections of cervix (A2) corporate representative sections of endometriummyometrium (A3) additional corporate representative sections of the thickened endometrium (A4) corporate representative sections of leiomyomas (A5) corporate representative sections of the fallopian tube (A6-A8) corporate representative sections of the cystic ovary JM (under the direct supervision of a pathologist) The Gross Description was prepared using a voice recognition system. The report was reviewed for accuracy; however, sound-alike word errors, addition and/or deletions may occur. If there is any question about this report, please contact Client Services. ADDITIONAL NOTES: Immunohistochemical and/or in situ hybridization studies if performed in this case included appropriate positive controls that reacted as expected. This test was developed and its performance characteristics determined by [email or web address]. It has not been cleared or approved by the U.S. Food and Drug Administration. The FDA has determined that such clearance or approval is not necessary. This test is used for clinical purposes. It should not be regarded as investigational or for research. [email or web address] is certified under the Clinical Laboratory Improvement Amendments of 1988 (CLIA) as qualified to perform high complexity clinical laboratory testing. PERFORMING LABORATORY: Technical component was performed by [email or web address], [address] [place] [id number] (CLIA# [id number]). Professional interpretation was performed by [facility] [address] [facility] [id number] PATIENT NAME: CHAGO WAGNER PATHOLOGY DATE OF : [birth year] REPORT #: [id number] PHYSICIAN: GIANNA CASTILLO PCP: NO PRIMARY CARE PHYSICIAN REPORT IS CONFIDENTIAL AND NOT TO BE RELEASED WITHOUT AUTHORIZATION [facility] [address] [place], [place] [address] Signed Diagnostician: Mao Hull MD Pathologist Electronically Signed 09/17/2024 Copies: ~ PATIENT NAME: CHAGO WAGNER PATHOLOGY DATE OF : [birth year] REPORT #: [id number] PHYSICIAN: GIANNA PATHOLOGY PCP: NO PRIMARY CARE PHYSICIAN REPORT IS CONFIDENTIAL AND NOT TO BE RELEASED WITHOUT AUTHORIZATION
--- NOTE | 2024-09-20 15:37 | OR ---
[facility] [address] [place], [place] [address] Signed DATE OF OPERATION: 09/15/2024 SURGEON: Sarina Lobo MD ASTROBIOLOGIST: YON Kearns DO PREOPERATIVE DIAGNOSES: 1. Persistent left ovarian mass. 2. History of endometrioma. 3. Morbid obesity. POSTOPERATIVE DIAGNOSES: 1. Persistent left ovarian mass. 2. History of endometrioma. 3. Morbid obesity. 4. Left endometrioma. 5. Pelvic adhesions. PROCEDURES: Total laparoscopic hysterectomy, left salpingo-oophorectomy, lysis of adhesions, cystoscopy. ANESTHESIA: General ET. ESTIMATED BLOOD LOSS: 50 mL. INDICATIONS AND FINDINGS: The patient is a 34-year-old female, who was found to have a left ovarian mass throughout her last . Since delivery, this has failed to resolve over 6 months time. Her previous was complicated by a very large right ovarian mass requiring removal during her which was a very large endometrioma. Ultrasounds are consistent with an endometrioma on the left. At the time of survery, the uterus was top normal size. The right tube and ovary were absent. The left ovary was adherent to the sigmoid as well as the cul de sac. It was a chocolate cyst consistent with an endometrioma. DESCRIPTION OF PROCEDURE: Electronically Signed By: SARINA LOBO MD 09/20/24 1537 PATIENT NAME: CHAGO IBARRA OPERATIVE REPORT DATE OF : [birth year] REPORT #: [id number] PHYSICIAN: SARINA LOBO MD PCP: NO PRIMARY CARE PHYSICIAN REPORT IS CONFIDENTIAL AND NOT TO BE RELEASED WITHOUT AUTHORIZATION [facility] [address] [place], [place] [address] Signed The patient was prepped and draped in the dorsal lithotomy position. A weighted speculum was placed. The anterior lip of the cervix was visualized and grasped with a single-tooth tenaculum. The cavity sounded to 11 cm. The endocervical canal was dilated slightly and the VCare cannula inserted into the uterus with the balloon inflated at the fundus. The tenaculum and speculum were removed. The cup was fitted over the cervix and the locking cup fitted into place. Attention was then directed above. The incision was made supraumbilically along the line of her prior scar. This area was injected with 0.5% Marcaine plain. An incision was made with a knife, and each layer was then serially elevated, incised until the fascia was opened and identified. Stay sutures of 0 Vicryl were placed. The peritoneum was opened bluntly. The Nohelia cannula was then placed and the balloon inflated. Placement of the scope confirmed proper positioning. The lower abdomen had no omental adhesions. There were some superiorly, but were not interfering with the view. After sufficient insufflation, the secondary ports were placed. These were placed laterally slightly below the level of umbilicus. Each of these areas was transilluminated, injected with the Marcaine, incision made with a knife and the trocars placed under direct vision. The left port was a 5 mm port and the right was the Veress needle with the expanding port. Following this, the pelvis was visualized. The planned procedure appeared appropriate. The patient's left infundibulopelvic ligament was then grasped and was serially coagulated and divided using the LigaSure [place] device. Following division, a 0 PDS Endoloop was placed ensuring hemostasis. Following this, the attention was directed to the utero-ovarian pedicle on the patient's left given the adhesions posteriorly. The utero-ovarian ligament was then serially coagulated and divided as was the round ligament. Some of the adhesions posteriorly were a little bit more thin and these could be divided. While the ovary was being manipulated, there was drainage of chocolate fluid into the pelvis. This actually allowed for easier manipulation of the ovary. Attention was then directed to the anterior portion. The round ligament was serially coagulated and divided and the anterior leaf of the peritoneum incised allowing for partial bladder flap. The peritoneum was taken down slightly posteriorly. The uterine vessels were coagulated and divided multiple times. Attention was then directed to the patient's right side. The round ligament was serially coagulated and divided. The anterior leaf of the peritoneum incised completing the bladder flap. The peritoneum was taken down posteriorly as well. The uterine vessels were coagulated multiple times and divided. Further dissection was done both anteriorly and posteriorly. Attention was redirected to the ovary and this was painstakingly removed from the underlying sigmoid. It was primarily adherent to the epiploica. The ovary was then freed and could be . Following this, the remaining posterior peritoneum was incised and further dissection was done both posteriorly and anteriorly on the left side. It was then felt that the uterus could be removed. The Sonicision device was used to serially separate the specimen from the cuff. The uterus was removed vaginally intact. The vagina was then packed with a glove Electronically Signed By: SARINA LOBO MD 09/20/24 1537 PATIENT NAME: CHAGO IBARRA OPERATIVE REPORT DATE OF : [birth year] REPORT #: [id number] PHYSICIAN: SARINA LOBO MD PCP: NO PRIMARY CARE PHYSICIAN REPORT IS CONFIDENTIAL AND NOT TO BE RELEASED WITHOUT AUTHORIZATION [facility] [address] [place], [place] [address] Signed with a wet lap allowing the pneumoperitoneum to reaccumulate. Attention was redirected above and the ovary re-evaluated. There was a small area that was still adherent and this was incised allowing for complete freedom of the ovary. The overlying area on the sigmoid and epiploica appeared raw, but there did not appear to be any damage to the colon. The ovary was then placed in a bag and removed through the center port. The abdomen was irrigated inspected and bleeding points at the cuff were controlled with cautery. The vaginal cuff was then closed using the Endo Stitch. This was run from the patient's right side to the left, taking care to incorporate the vaginal mucosa. The uterosacral ligaments really could not be identified because of the partial obliteration of the cul-de-sac. Following this, again copious irrigation was done. Before closure of the abdomen, cystoscopy was done given the difficulty of the dissection. Attention was directed down below and the Carrillo catheter removed. The patient had received IV fluorescein. The 30-degree scope was used to visualize the bladder. There was no evidence of any damage to the bladder. Both ureteral orifices were easily seen and both immediately produced clear urine. Following this, the bladder was drained and the Carrillo catheter replaced. The vaginal pack was removed as well. Attention was redirected above and Tisseel was sprayed over the pelvis to further aid in hemostasis given the large dissection area. The abdomen was closed after removing the instruments and as much CO2 as possible. The fascial incision at the umbilicus was closed with a running suture of 0-Vicryl. The stay sutures were tied across as well. The subq deep space was closed with 0-Vicryl as well. The skin incisions were closed with subcuticular sutures of 3-0 Vicryl Rapide. All sponge and needle counts were correct. She tolerated the procedure well and was taken to the recovery room in good condition. Sarina Lobo MD PJJulien/JEOVANNYL /[id number] Copies: ~ Electronically Signed By: SARINA LOBO MD 09/20/24 1537 PATIENT NAME: CHAGO IBARRA OPERATIVE REPORT DATE OF : [birth year] REPORT #: [id number] PHYSICIAN: SARINA LOBO MD PCP: NO PRIMARY CARE PHYSICIAN REPORT IS CONFIDENTIAL AND NOT TO BE RELEASED WITHOUT AUTHORIZATION
== END 2024-09-15 15:30 | disposition home or self-care (01) ==
LOC: OPS 06:04 → DS 06:04 → OPS 07:30 → DS 07:30 → OPS 15:30
PROVIDERS: ATTEND Obstetrics & Gynecology
PROC: 0UB64ZZ Excision of Left Fallopian Tube, Percutaneous Endoscopic Approach (ICD-10-PCS; 2024-09-15)
PROC: 0UT94ZZ Resection of Uterus, Percutaneous Endoscopic Approach (ICD-10-PCS; principal; 2024-09-15 07:30)
PROC: 0UB14ZZ Excision of Left Ovary, Percutaneous Endoscopic Approach (ICD-10-PCS; 2024-09-15 07:30)
DX: D25.9 Leiomyoma of uterus, unspecified (principal); N80.122 Deep endometriosis of left ovary; N83.02 Follicular cyst of left ovary; I10 Essential (primary) hypertension; E66.01 Morbid (severe) obesity due to excess calories; Z68.43 Body mass index [BMI] 50.0-59.9, adult; N73.6 Female pelvic peritoneal adhesions (postinfective)
CPT/HCPCS: 00840; J0131; J0690; J1100; J1171; J1644; J1885; J2003; J2405; J2704; J2765; J3010; J3475; J3490; J7121